=== PATIENT | female | born 1975 | race Caucasian/White ===

== ENCOUNTER → 2021-06-19 | Outpatient (CLI) | payer BC ==
[~2021-06-19] MED LIST: ADVAIR; ALBU90OI INH; CITA20 PO; CLARITIN5 MG PO; CYAN500 PO; CYCL10 PO; DOCU100 PO; FLUT1DIS5 INH; HYDACE5 PO; IBUP400 PO; NASACORT10.8 ML; POTASSIUM99 MG PO; TRAM50 PO; ZAFI20; ZYRTEC
== END | disposition home or self-care (01) ==
LOC: LAB SHORT 08:51
DX: J02.9 Acute pharyngitis, unspecified (principal)
CPT/HCPCS: 87081

== ENCOUNTER 2022-08-14 11:48 | Day surgery (SDC) | payer OTHER ==
[~2022-08-14] VITALS: Ht 170.2 cm; Wt 98.1 kg
[2022-08-14] MEDS ORDERED: XYZAL5 MG (12:41)
[2022-08-14] MEDS ORDERED: LORA10ER (12:41)
[2022-08-14] MEDS ORDERED: IBUP800 (12:41)
[2022-08-14] MEDS ORDERED: Flonase 0.05% N16 GM (12:41)
--- NOTE | 2022-08-14 15:18 | NUR ---
08/14/22 1518 Lydia Morrison 4ML ORISE USED TO ELEVATE POLYP
== END 2022-08-14 15:45 | disposition home or self-care (01) ==
LOC: ORSCSDS 11:48
DX: R19.4 Change in bowel habit (principal); D12.5 Benign neoplasm of sigmoid colon; D12.4 Benign neoplasm of descending colon; D12.2 Benign neoplasm of ascending colon; D12.3 Benign neoplasm of transverse colon; K63.5 Polyp of colon; K62.1 Rectal polyp; K64.8 Other hemorrhoids; Z87.891 Personal history of nicotine dependence; K76.0 Fatty (change of) liver, not elsewhere classified; K21.9 Gastro-esophageal reflux disease without esophagitis; J45.909 Unspecified asthma, uncomplicated; Z79.899 Other long term (current) drug therapy; F41.8 Other specified anxiety disorders
CPT/HCPCS: 82947; 88305; J2704; J7120

== ENCOUNTER → 2023-10-11 | Outpatient (CLI) | payer OTHER ==
[~2023-10-11] MED LIST changes: +Flonase 0.05% N16 GM; +IBUP800; +LORA10ER; +XYZAL5 MG
[2023-10-11 20:16] LABS: Creatinine, Urine Random 95.2 mg/dL (27.00-270.00); Microalb/Creat Ratio UR, Rand 5.494 mg/g (0.000-30.000); Microalbumin, Random Urine 5.23 mg/L (0.000-20.000)
[2023-10-13 07:07] LABS: CALCIUM, SERUM 8.7 mg/dL (8.7-10.2); CREATININE, SERUM 0.92 mg/dL (0.57-1.00); POTASSIUM, SERUM 3.8 mmol/L (3.5-5.2)
[2023-10-14 10:34] LABS: COTININE, URN, SCREEN Negative ng/mL (Cutoff 100)
== END | disposition home or self-care (01) ==
LOC: LAB SHORT 18:43
PROVIDERS: Nurse Practitioner Family
DX: Z13.9 Encounter for screening, unspecified (principal); R73.03 Prediabetes
CPT/HCPCS: 80048; 82043; 82570; 83036

== ENCOUNTER 2024-08-07 09:08 | Day surgery (SDC) | payer OTHER ==
[~2024-08-07 09:08] MED LIST changes: +ALBU2.5V5; +ALLERCLEAR10 MG PO; +Cyclobenzaprine5 MG PO; +FENTANYL1 EA12; -IBUP800; +IBUP800 PO; +LOMAIRA8 MG; -LORA10ER; +LORA10ER PO; -XYZAL5 MG; +XYZAL5 MG PO
== END 2024-08-07 23:00 | disposition home or self-care (01) ==
LOC: MOI US 09:08
DX: C50.411 Malignant neoplasm of upper-outer quadrant of right female breast (principal); C77.3 Secondary and unspecified malignant neoplasm of axilla and upper limb lymph nodes
CPT/HCPCS: 19285; 38505; 77065; A4648

== ENCOUNTER 2024-09-04 11:09 | Emergency (ER) | payer OTHER ==
[~2024-09-04] VITALS: Ht 170.2 cm; Wt 95.2 kg
[2024-09-04 12:03] LABS: Hematocrit 36.5 % (33.0-51.0); Hemoglobin 12.8 g/dL (11.5-16.0); Mean Corpuscular HGB 30.5 pg (26.0-34.0); Mean Corpuscular HGB Conc 35.1 g/dL (31.5-36.5); Mean Corpuscular Volume 87 fL (80-100); Mean Platelet Volume 9.5 fL (9.1-12.4); Platelet Count 157 K/mm3 (150-400); RDW Coefficient Variation 13.9 % (11.7-14.2); RDW Standard Deviation 42.4 fL (35.1-46.3); White Blood Cell Count 39.43 K/mm3 (4.00-11.30)
[2024-09-04 12:12] LABS: CORONAVIRUS COVID-19 AG Negative (NEGATIVE); INFLUENZA A AG Positive (NEGATIVE); INFLUENZA B AG Negative (NEGATIVE)
[2024-09-04 12:13] LABS: Albumin, Blood 3.4 g/dL (3.4-5.0); Albumin/Globulin Ratio 0.9 (0.8-1.8); Bilirubin, Total 0.7 mg/dL (0.1-1.0); Bun/Creatinine Ratio 16.7 (12.0-20.0); Calcium, Blood 9.1 mg/dL (8.5-10.1); Creatinine, Blood 0.78 mg/dL (0.40-1.00); Globulin, Blood 3.7 g/dL (2.2-4.0); Potassium, Blood 4.1 mmol/L (3.5-5.5); Total Protein, Blood 7.1 g/dL (6.4-8.2)
[2024-09-04 12:34] LABS: BAND PERCENT MAN 16 % (0-8); BASOPHILS PERCENT MAN 0 % (0-2); EOSINOPHILS PERCENT MAN 0 % (0-6); LYMPHOCYTES ABSOLUTE MAN 0.39 K/mm3 (0.84-5.20); LYMPHOCYTES PERCENT MAN 1 % (21-46); MONOCYTES ABSOLUTE MAN 0.39 K/mm3 (0.16-1.47); MONOCYTES PERCENT MAN 1 % (4-13); NEUTROPHILS ABSOLUTE MAN 38.64 K/mm3 (1.96-9.15); SEG NEUTROPHILS PERCENT MAN 82 % (41-73); TOTAL CELLS COUNTED 100
[2024-09-04] MEDS ORDERED: Prochlorperazine Edisylate 10 mg Vial IV ONE (14:35)
[2024-09-04] MEDS ORDERED: NS 1,000 ML IV SCH (14:35)
[2024-09-04] MEDS ORDERED: Oseltamivir Phosphate 75 MG Cap PO ONE (14:45)
[2024-09-04] MEDS ORDERED: Ondansetron HCl 2 MG / ML 2ML Vial IV ONE (15:00)
[2024-09-04] MEDS ORDERED: Tamiflu75 MG PO (15:44)
[2024-09-04 16:00] VITALS: BP 128/82
== END 2024-09-04 16:04 | disposition home or self-care (01) ==
LOC: ER 11:09
PROVIDERS: Physician Assistant
DX: J10.1 Influenza due to other identified influenza virus with other respiratory manifestations (principal); R11.2 Nausea with vomiting, unspecified; Z79.899 Other long term (current) drug therapy; Z91.040 Latex allergy status; Z88.5 Allergy status to narcotic agent; Z88.0 Allergy status to penicillin
CPT/HCPCS: 80053; 85025; 87428-QW; 96374; 99283-25; A9270; J0780; J2405; J7030

== ENCOUNTER 2024-11-19 10:42 | Day surgery (SDC) | payer OTHER ==
[~2024-11-19] VITALS: Ht 170.2 cm; Wt 101.8 kg
[2024-11-19] VITALS (10 sets, daily range): BP systolic 108–126; BP diastolic 66–82
[~2024-11-19 10:42] MED LIST changes: +Clindamycin 600mg in D5W 50 ML IV SCH; +Lactated Ringer's 1,000 ML IV SCH; +Tamiflu75 MG PO
[2024-11-19] MEDS ORDERED: Methylene Blue 1% 100 MG/10 ML VIAL ONE (10:53)
[2024-11-19] MEDS ORDERED: Bupivacaine 0.5% HCl 5 MG/ML 30MLVIAL ONE (10:54)
[2024-11-19] MEDS ORDERED: Lactated Ringer's 0 ML IV ONE (12:03)
--- NOTE | 2024-11-19 12:10 | NUR ---
Ambulatory in Day Surgery History, Chart, Medications and Allergies reviewed before start of procedure. Pre-Op teaching done. Pt verbalizes understanding. Patient States Post-Procedure ride home has been arranged.
[2024-11-19] MEDS ORDERED: propofoL 20 ML IV ONE (12:40)
[2024-11-19] MEDS ORDERED: Dexamethasone Sod Phos 10 MG/ML 1ML VIAL ONE (12:40)
[2024-11-19] MEDS ORDERED: FentaNYL Citrate 50 MCG/ML 2 ML Injection ONE (12:40)
[2024-11-19] MEDS ORDERED: Ketorolac Tromethamine 30mg Vial ONE (12:40)
[2024-11-19] MEDS ORDERED: Lidocaine HCl 2% 20 ML MDV ONE (12:40)
[2024-11-19] MEDS ORDERED: Ondansetron HCl 2 MG / ML 2ML Vial ONE (12:40)
[2024-11-19] MEDS ORDERED: FentaNYL Citrate 50 MCG/ML 2 ML Injection IV PRN (13:10)
[2024-11-19] MEDS ORDERED: Albuterol 2.5 MG/3 ML VIAL INH PRN (13:10)
[2024-11-19] MEDS ORDERED: HYDROmorphone HCl 0.5 MG/0.5 ML SYR IV PRN (13:10)
[2024-11-19] MEDS ORDERED: Ondansetron HCl 2 MG / ML 2ML Vial IV PRN (13:10)
[2024-11-19] MEDS ORDERED: HYDROcodone 5-APAP 325 TAB PO PRN (15:00)
--- NOTE | 2024-11-19 15:29 | NUR ---
1518: REPORT RECEIVED FROM AUBREY PHILLIPS. VSS. PT ON RA. PT SLEEPY, BUT AROUSABLE AND FOLLOWS COMMANDS APPROPRIATELY. PT DENIES PAIN OR NAUSEA. PT HAS GAUZE/STERI STRIP TO RIGHT BREAST AND RIGHT AXILLARY THAT ARE CDI. PT ALSO HAS BREAST BINDER IN PLACE THAT IS CDI.
--- NOTE | 2024-11-19 16:25 | NUR ---
1610: Patient up to Ambulate independently. Gait steady. VSS AND CONSISTENT WITH PT BASELINE. PT HAS HAS NO COMPLAINTS AND VERBALIZES READINESS TO GO HOME. Discharge instructions reviewed with patient. Patient verbalizes understanding. Copy given to patient to take home. Dressing to procedure site clean, dry, intact with no visible drainage, swelling, erythema or bruising noted. Patient States Post-Procedure ride home has been arranged. Discharged via wheelchair to private car for ride home. PT BELONGINGS RETURNED TO PT.
[2024-11-30] MEDS ORDERED: HYDROCODONE-AC1 EA10 PO (09:14)
== END 2024-11-19 16:10 | disposition home or self-care (01) ==
LOC: ORSCMMR 10:42 → NM 10:42 → ORSCMMR 10:44 → NM 11:00 → ORSCMMR 16:10 → NM 16:10
PROVIDERS: Surgery
PROC: 07B50ZX Excision of Right Axillary Lymphatic, Open Approach, Diagnostic (ICD-10-PCS; principal; 2024-11-19 12:30)
PROC: 0JPT3WZ Removal of Totally Implantable Vascular Access Device from Trunk Subcutaneous Tissue and Fascia, Percutaneous Approach (ICD-10-PCS; principal; 2024-11-19 12:30)
PROC: 0HBT0ZZ Excision of Right Breast, Open Approach (ICD-10-PCS; principal; 2024-11-19 12:30)
DX: C50.411 Malignant neoplasm of upper-outer quadrant of right female breast (principal); C77.3 Secondary and unspecified malignant neoplasm of axilla and upper limb lymph nodes; Z45.2 Encounter for adjustment and management of vascular access device; Z17.0 Estrogen receptor positive status [ER+]; Z17.21 Progesterone receptor positive status; Z17.32 Human epidermal growth factor receptor 2 negative status; Z87.891 Personal history of nicotine dependence; J45.909 Unspecified asthma, uncomplicated; M79.7 Fibromyalgia; Z79.899 Other long term (current) drug therapy
CPT/HCPCS: 38792; 76098; 88307; 88331; 88332; 88341; 88342; A9520; J1100; J1885; J2405; J2704; J3010; J7120; Q9968

== ENCOUNTER 2024-12-02 06:31 | Day surgery (SDC) | payer OTHER ==
[~2024-12-02] VITALS: Ht 170.2 cm; Wt 106.0 kg
[2024-12-02] VITALS (10 sets, daily range): BP systolic 96–128; BP diastolic 61–84
[~2024-12-02 06:31] MED LIST changes: -Clindamycin 600mg in D5W 50 ML IV SCH; +HYDROCODONE-AC1 EA10 PO; -Lactated Ringer's 1,000 ML IV SCH
[2024-12-02] MEDS ORDERED: Clindamycin 600mg in D5W 50 ML IV SCH (06:45)
[2024-12-02] MEDS ORDERED: Lactated Ringer's 1,000 ML IV SCH (06:45)
[2024-12-02] MEDS ORDERED: CODACE30 (07:03)
--- NOTE | 2024-12-02 07:15 | NUR ---
Ambulatory in Day SurgeryPre-Op teaching done. Pt verbalizes understanding. History, Chart, Medications and Allergies reviewed before start of procedure.Patient confirms NPO status and agrees with scheduled surgery. Patient reports completing Chlorhexadine shower X2 prior to admission to hospital.Patient States Post-Procedure ride home has been arranged.
[2024-12-02] MEDS ORDERED: propofoL 60 ML IV ONE (08:04)
[2024-12-02] MEDS ORDERED: Bupivacaine 0.5% HCl 5 MG/ML 30MLVIAL ONE (08:16)
[2024-12-02] MEDS ORDERED: Ondansetron HCl 2 MG / ML 2ML Vial ONE (08:31)
[2024-12-02] MEDS ORDERED: Midazolam HCl 1MG / ML 2ML Vial ONE (08:31)
[2024-12-02] MEDS ORDERED: Dexamethasone Sod Phos 10 MG/ML 1ML VIAL ONE (08:31)
[2024-12-02] MEDS ORDERED: FentaNYL Citrate 50 MCG/ML 2 ML Injection ONE ×2 (08:32→09:44)
[2024-12-02] MEDS ORDERED: propofoL 20 ML IV ONE (09:33)
[2024-12-02] MEDS ORDERED: HYDROcodone 5-APAP 325 TAB PO PRN (10:35)
--- NOTE | 2024-12-02 11:33 | NUR ---
Patient up to Ambulate independently. Gait steady. Discharge instructions reviewed with patient. Patient verbalizes understanding. Copy given to patient to take home. Patient States Post-Procedure ride home has been arranged. Discharged via wheelchair to private car for ride home. PT DRESSING C/D/I. ANA IN PLACE, DRAINING MINIMAL AMT OF FLUID. PT SHOWN HOW TO DRAIN ANA DRAIN, SUPPLIES SENT WITH PT. PT TOLERATING PO, REPORTS READY TO GO HOME.
== END 2024-12-02 11:33 | disposition home or self-care (01) ==
LOC: ORD 06:31 → ORSCMMR 06:31 → ORD 07:30
PROVIDERS: Surgery
PROC: 07B50ZX Excision of Right Axillary Lymphatic, Open Approach, Diagnostic (ICD-10-PCS; principal; 2024-12-02 08:30)
DX: C50.911 Malignant neoplasm of unspecified site of right female breast (principal); C77.3 Secondary and unspecified malignant neoplasm of axilla and upper limb lymph nodes; Z17.0 Estrogen receptor positive status [ER+]; Z17.21 Progesterone receptor positive status; Z17.32 Human epidermal growth factor receptor 2 negative status; Z87.891 Personal history of nicotine dependence; Z79.899 Other long term (current) drug therapy
CPT/HCPCS: 88307; A9270; J1100; J2250; J2405; J2704; J3010; J7120

== ENCOUNTER 2025-01-07 10:11 | Day surgery (SDC) | payer OTHER ==
[~2025-01-07] VITALS: Ht 170.2 cm; Wt 106.0 kg
[~2025-01-07 10:11] MED LIST changes: +CODACE30; +Dexamethasone Sod Phos 10 MG/ML 1ML VIAL ONE; +FentaNYL Citrate 50 MCG/ML 2 ML Injection ONE; +Lactated Ringer's 1,000 ML IV ONE; +Midazolam HCl 1MG / ML 2ML Vial ONE; +Ondansetron HCl 2 MG / ML 2ML Vial ONE; +Rocuronium Bromide 10 MG/ML 5ML Injection IV ONE; +propofoL 20 ML IV ONE
[2025-01-07] MEDS ORDERED: CYCL10 PO (10:54)
[2025-01-07] MEDS ORDERED: Lactated Ringer's 1,000 ML IV ONE ×2 (11:18→13:39)
[2025-01-07] MEDS ORDERED: Bupivacaine 0.5% W/EPI 1:200000 SDV 30ML INJ ONE ×2 (11:51)
[2025-01-07] MEDS ORDERED: FentaNYL Citrate 50 MCG/ML 2 ML Injection ONE ×3 (12:04→15:42)
[2025-01-07] MEDS ORDERED: Sugammadex Sodium 200 MG/2ML SDV (100 MG/ML) ONE (12:05)
[2025-01-07] MEDS ORDERED: Bupivacaine 0.5% W/EPI 1:200000 SDV 30 ML Vial ONE (12:07)
[2025-01-07] MEDS ORDERED: Rocuronium Bromide 10 MG/ML 5ML Injection IV ONE (12:41)
[2025-01-07] MEDS ORDERED: CeFAZolin Sodium 1000 mg Vial ONE (12:42)
--- NOTE | 2025-01-07 12:59 | NUR ---
01/07/[address] INTO OR TO ASSIST DR TREJO AT 1248.
--- NOTE | 2025-01-07 14:47 | NUR ---
01/07/25 1447 KEYONNA OLIVARES RESTING WITH EYES CLOSED. OPA IN PLACE
--- NOTE | 2025-01-07 15:39 | NUR ---
01/07/25 1539 KEYONNA OLIVARES 11/23 "my bladder hurts", "it feels like I have to pee". Nieves draining light pink/brown urine.
[2025-01-07] MEDS ORDERED: TraMADol HCl 50 MG Tab ONE (16:12)
[2025-01-07 16:17] VITALS: BP 132/89
[2025-01-07] MEDS ORDERED: Metoclopramide HCl 5MG / ML 2ML Vial ONE (16:28)
== END 2025-01-07 17:53 | disposition home or self-care (01) ==
LOC: ORSCSDS 10:11
PROVIDERS: Obstetrics & Gynecology
PROC: 0DNU4ZZ Release Omentum, Percutaneous Endoscopic Approach (ICD-10-PCS; principal; 2025-01-07 11:45)
PROC: 0UT14ZZ Resection of Left Ovary, Percutaneous Endoscopic Approach (ICD-10-PCS; principal; 2025-01-07 11:45)
DX: C50.911 Malignant neoplasm of unspecified site of right female breast (principal); N83.292 Other ovarian cyst, left side; N99.71 Accidental puncture and laceration of a genitourinary system organ or structure during a genitourinary system procedure; N73.6 Female pelvic peritoneal adhesions (postinfective); J45.909 Unspecified asthma, uncomplicated; E78.5 Hyperlipidemia, unspecified; F41.8 Other specified anxiety disorders; Z79.899 Other long term (current) drug therapy
CPT/HCPCS: 88305; A9270; J0690; J1100; J2250; J2405; J2704; J2765; J3010; J7120

== ENCOUNTER 2025-07-08 08:55 | Day surgery (SDC) | payer OTHER ==
[~2025-07-08] VITALS: Ht 170.2 cm; Wt 95.7 kg
[~2025-07-08 08:55] MED LIST changes: -Dexamethasone Sod Phos 10 MG/ML 1ML VIAL ONE; -FentaNYL Citrate 50 MCG/ML 2 ML Injection ONE; -Lactated Ringer's 1,000 ML IV ONE; -Midazolam HCl 1MG / ML 2ML Vial ONE; -Ondansetron HCl 2 MG / ML 2ML Vial ONE; -Rocuronium Bromide 10 MG/ML 5ML Injection IV ONE; -propofoL 20 ML IV ONE
[2025-07-08] MEDS ORDERED: [UNRECOGNIZED DRUG - OTHER] (09:17)
[2025-07-08] MEDS ORDERED: CETI5 (09:17)
[2025-07-08] MEDS ORDERED: BIOTIN PLUS 5,1 EACH (09:18)
[2025-07-08] MEDS ORDERED: ANASTROZOLE1 M7 (09:19)
[2025-07-08] MEDS ORDERED: CALCIUM CARBON500 M1 PO (09:19)
[2025-07-08 10:54] VITALS: BP 102/66
== END 2025-07-08 11:13 | disposition home or self-care (01) ==
LOC: ORSCSDS 08:55
PROVIDERS: Internal Medicine Gastroenterology
PROC: 0DBM8ZX Excision of Descending Colon, Via Natural or Artificial Opening Endoscopic, Diagnostic (ICD-10-PCS; principal; 2025-07-08 10:30)
PROC: 0DBN8ZX Excision of Sigmoid Colon, Via Natural or Artificial Opening Endoscopic, Diagnostic (ICD-10-PCS; principal; 2025-07-08 10:30)
DX: Z09 Encounter for follow-up examination after completed treatment for conditions other than malignant neoplasm (principal); Z86.0101 Personal history of adenomatous and serrated colon polyps; D12.4 Benign neoplasm of descending colon; K57.30 Diverticulosis of large intestine without perforation or abscess without bleeding; K58.9 Irritable bowel syndrome, unspecified
CPT/HCPCS: 88305; J2704; J7120